=== PATIENT | male | born 1995 | race African-American/Black ===

== ENCOUNTER 2017-06-07 01:54 | Emergency (ER) | payer OTHER ==
[2017-06-07 03:08] LABS: BASO % 0.3 % (0.0-1.0); EOS # 0.1 10^3/uL (0.0-0.50); EOS % 0.8 % (0.0-3.0); HEMATOCRIT 40.3 % (42.0-52.0); HEMOGLOBIN 13.6 g/dl (14.0-18.0); IMMATURE GRANULOCYTE % 0.3 % (0-0); LYMPH # 1.9 10^3/uL (1.5-6.5); LYMPH % 21.8 % (24.0-44.0); MEAN CORPUSCULAR HEMOGLOBIN 29.6 pg (27.0-33.0); MEAN CORPUSCULAR HGB CONC 33.7 g/dl (32.0-36.5); MEAN CORPUSCULAR VOLUME 87.6 fl (80.0-96.0); NEUTROPHILS # 5.8 10^3/uL (1.8-7.7); NEUTROPHILS % 65.8 % (36.0-66.0); PLATELET COUNT, AUTOMATED 240 10^3/uL (150-450); RED CELL DISTRIBUTION WIDTH 11.3 % (11.5-14.5); WHITE BLOOD COUNT 8.8 10^3/uL (4.0-10.0)
[2017-06-07 03:20] LABS: ALBUMIN 4.4 GM/DL (3.2-5.2); ALBUMIN/GLOBULIN RATIO 1.47 (1.00-1.93); ALKALINE PHOSPHATASE 52 U/L (45-117); ALT/SGPT 45 U/L (12-78); ANION GAP 5 MEQ/L (8-16); AST/SGOT 49 U/L (7-37); BILIRUBIN,DIRECT 0.2 MG/DL (0.0-0.2); BILIRUBIN,TOTAL 0.5 MG/DL (0.2-1.0); BLOOD UREA NITROGEN 24 MG/DL (7-18); CALCIUM LEVEL 9.4 MG/DL (8.5-10.1); CARBON DIOXIDE LEVEL 29 MEQ/L (21-32); CHLORIDE LEVEL 106 MEQ/L (98-107); CREATININE FOR GFR 1.13 MG/DL (0.70-1.30); GLOMERULAR FILTRATION RATE > 60.0 (>60); GLUCOSE, FASTING 99 MG/DL (70-105); LIPASE 172 U/L (73-393); POTASSIUM SERUM 3.9 MEQ/L (3.5-5.1); SODIUM LEVEL 140 MEQ/L (136-145); TOTAL PROTEIN 7.4 GM/DL (6.4-8.2)
[2017-06-07] MEDS: GI COCKTAIL 50ML BTL(HYOSCYAMINE/MAALOX/LIDOCAINE VISCOUS)(1:3:1) PO (03:45)
[2017-06-07] MEDS ORDERED: ISOVUE-370 76% 100ML VIAL (Q9967) As Ordered (04:28)
[2017-06-07] MEDS: PANTOPRAZOLE 40MG INJ (PROTONIX) (C9113) IV (04:30)
[2017-06-07] MEDS: SUCRALFATE 1 GM TAB PO (04:30)
[2017-06-07] MEDS: FAMOTIDINE INJ 20MG/2ML VIAL (S0028) IVP (04:45)
== END 2017-06-07 06:33 | disposition home or self-care (01) ==
LOC: M ED 01:54
DX: R10.13 Epigastric pain (principal)
CPT/HCPCS: C9113

== ENCOUNTER 2017-07-05 14:26 | Emergency (ER) | payer OTHER ==
[2017-07-05] MEDS: IBUPROFEN 800 MG TAB PO (14:41)
== END 2017-07-05 16:04 | disposition home or self-care (01) ==
LOC: M ED 14:26
DX: S16.1XXA Strain of muscle, fascia and tendon at neck level, initial encounter (principal); S20.219A Contusion of unspecified front wall of thorax, initial encounter; V43.52XA Car driver injured in collision with other type car in traffic accident, initial encounter; Y92.9 Unspecified place or not applicable; Y93.9 Activity, unspecified
CPT/HCPCS: 71046

== ENCOUNTER 2017-07-29 23:00 | Emergency (ER) | payer OTHER ==
[2017-07-29] MEDS: ACETAMINOPHEN 325 MG TAB PO (23:45)
[2017-07-29] MEDS: CYCLOBENZAPRINE 10 MG TAB PO (23:45)
== END 2017-07-29 23:54 | disposition home or self-care (01) ==
LOC: M ED 23:00
DX: F07.81 Postconcussional syndrome (principal); K25.9 Gastric ulcer, unspecified as acute or chronic, without hemorrhage or perforation; Z79.899 Other long term (current) drug therapy
CPT/HCPCS: 99282

== ENCOUNTER 2018-12-20 20:09 | Inpatient (IN) | payer OTHER ==
[~2018-12-20] VITALS: Ht 182.9 cm; Wt 71.3 kg
[~2018-12-20 20:09] MED LIST: ACET1TAB55; CARA1TAB6; CARA1TAB6 PO; CYCL10TA; CYCL10TA PO; FAMO20TA PO; IBUP80TA PO; METH1TAB40; NAPR-885; PROT1TAB2; PROT1TAB2 PO; TYLE500T78 PO
[2018-12-20] MEDS ORDERED: MORPHINE 4 MG/ML 1ML VIAL/SYRINGE (J2270) As Ordered ONE (20:18)
[2018-12-20] MEDS ORDERED: MORPHINE 4 MG/ML 1ML VIAL/SYRINGE (J2270) IV ONE ×3 (20:30→21:15)
[2018-12-20 20:35] LABS: BASO % 0.2 % (0.0-1.0); EOS # 0.1 10^3/uL (0.0-0.50); HEMATOCRIT 41.6 % (42.0-52.0); HEMOGLOBIN 13.7 g/dl (13.5-17.5); LYMPH # 2.2 10^3/uL (1.5-6.5); LYMPH % 26.5 % (24.0-44.0); MEAN CORPUSCULAR HEMOGLOBIN 29.8 pg (27.0-33.0); MEAN CORPUSCULAR HGB CONC 32.9 g/dl (32.0-36.5); MEAN CORPUSCULAR VOLUME 90.6 fl (80.0-96.0); MONO # 0.7 10^3/uL (0.0-0.8); MONO % 8.3 % (0.0-5.0); NEUTROPHILS # 5.3 10^3/uL (1.8-7.7); NEUTROPHILS % 63.6 % (36.0-66.0); PLATELET COUNT, AUTOMATED 243 10^3/uL (150-450); RED BLOOD COUNT 4.59 10^6/uL (4.30-6.10); WHITE BLOOD COUNT 8.2 10^3/uL (4.0-10.0)
[2018-12-20] MEDS ORDERED: AMPICILLIN SOD/SULBACTAM SOD 1.5 GM in D5W MINI-BAG PLUS 50 ML IV ONE (20:45)
[2018-12-20 20:49] LABS: BLOOD UREA NITROGEN 14 MG/DL (7-18); CARBON DIOXIDE LEVEL 27 MEQ/L (21-32); CHLORIDE LEVEL 108 MEQ/L (98-107); CREATININE FOR GFR 1.31 MG/DL (0.70-1.30); GLOMERULAR FILTRATION RATE > 60.0 (>60); GLUCOSE, FASTING 89 MG/DL (70-100); SODIUM LEVEL 143 MEQ/L (136-145)
[2018-12-20] MEDS ORDERED: HYDROMORPHONE HCL 0.5 MG/ 0.5 ML SYRINGE (J1170 PER 1) IV PRN (22:15)
[2018-12-21 01:10] VITALS: BP 143/85
[2018-12-21] MEDS ORDERED: oxyCODONE 5MG TAB PO PRN (01:30)
[2018-12-21] MEDS: MORPHINE 4 MG/ML 1ML VIAL/SYRINGE (J2270) IV PRN ×2 (01:40→19:14)
[2018-12-21] MEDS: NS 1,000 ML IV SCH ×2 (01:45→12:16)
[2018-12-21] MEDS: ceFAZolin SOD 1 GM in D5W MINI-BAG PLUS 50 ML IV SCH ×2 (02:13→09:31)
[2018-12-21] MEDS: oxyCODONE 5MG TAB PO PRN ×3 (03:56→14:32)
[2018-12-21 06:00] VITALS: BP 124/76
--- NOTE | 2018-12-21 07:19 | HPE ---
DATE OF ADMISSION: 12/20/2018 CHIEF COMPLAINT: Right leg pain. HISTORY OF PRESENT ILLNESS: This is a pleasant young man who presents to the emergency room for right leg pain. The patient was playing soccer last evening at 8:00 p.m. when he was tackled during a soccer game and appreciated immediate pain and deformity to his right leg. The patient also notes a small laceration and bleeding over his right leg. He also had inability to ambulate. The pain was sharp and severe 10/10. It was located on the anteromedial right leg. He denies any pain elsewhere. He states the pain was made worse with movement and improved with immobilization and pain medications. He was taken to [facility] emergency room where he was evaluated and found a midshaft tibia/fibular fracture and the tibia fracture was open. He denies any recent fever, chills, nausea or vomiting. Denies any numbness or tingling. REVIEW OF SYSTEMS: 10-system review of systems was conducted with pertinent positives and negatives in the history of present illness (HPI). All other systems negative. PAST MEDICAL HISTORY: None. MEDICATIONS: He does not take any medications. ALLERGIES: No known drug allergies. PAST SURGICAL HISTORY: None. SOCIAL HISTORY: He is with a small child and works at [employer] for the last two years. He is a smoker. PHYSICAL EXAMINATION: Vital signs are stable. The patient is awake, alert and oriented. Patient's breathing is unlabored on room air. Well dressed with appropriate affect. Bilateral upper extremities: No test, but the patient has full active range of motion of the shoulders, elbows and hands with no pain. Radial pulses are 2+ and regular rate. Sensory: The patient is intact to light touch to superficial, sensory nerve, medial nerve and ulnar nerve. Positive anterior interosseous nerve (AIN) and posterior interosseous nerve (PIN) and ulnar motor nerve function. Normal cascade with composite test. Left lower extremity: No tenderness to palpation. Full active range of motion of the hip, knee, and ankle without any pain. Positive extensor hallucis longus (EHL) and flexor hallucis longus (FHL), tibia and gastroc motor function. Sensation to light touch superficial peroneal, deep peroneal, sural and saphenous and tibial distributions. Posterior tibial is 2+ with regular rate. Right lower extremity: Splint is intact. Tender to palpation over the midshaft tibia. 1.5 cm laceration that is clean on the anteromedial aspect of the tibia. Intact toe FHL and EHL. No pain with passive stretching. Compartments are soft but tender, soft and compressible though. No tenderness to palpation of about the knee. No tenderness to palpation about the hip. Patient is intact in sural and saphenous, tibial and superficial deep peroneal nerves. Dorsalis pedis pulses are 2+ with a regular rate. IMAGING: X-rays of the tibia were reviewed demonstrating a midshaft tibial fracture and mid shaft fibular fracture. ASSESSMENT/PLAN: 1. Open midshaft tibia fracture. 2. Closed midshaft fibula fracture. The patient will be admitted to the orthopaedic service. He will nothing by mouth after midnight. He is receiving IV antibiotics per open fracture protocol. His tetanus is up-to-date with [facility]. He will be monitored overnight for compartment checks. He will be given pain medication for pain control. He will immobilized in a splint. He is bedrest with plan for operative intervention tomorrow, which was discussed with the patient and his family, which involves irrigation and debridement of the open fracture of the tibia along with intramedullary nailing of the tibia and closed management of the fibula. All risks and benefits were discussed with the patient including but not limited to malunion, nonunion and infection, damage to surrounding structures. We did discuss how he is at a little bit higher risk of infection due to his open fracture along with the fact that he smokes and that smoking also increases his risk of nonunion.
--- NOTE | 2018-12-21 07:49 | REP ---
Clinical: Trauma. Technique: AP and lateral views of the right tibia / fibula. Findings: Transverse moderately displaced fractures of the distal tibial and ulnar diaphyses noted. Impression: Transverse fractures of the distal tibial and ulnar diaphyses. Electronically Signed by Asa Lincoln MD 12/21/2018 07:41 A
--- NOTE | 2018-12-21 07:50 | REP ---
Clinical: Preoperative assessment . Comparison: 07/05/2017 . Findings: The mediastinum and cardiac silhouette are stable and within normal limits for portable technique. The lung mandel are clear without acute consolidation, effusion, or pneumothorax. Skeletal structures are intact. Impression: No acute cardiopulmonary process appreciated. Electronically Signed by Asa Lincoln MD 12/21/2018 07:42 A
[2018-12-21 14:00] VITALS: BP 136/76
[2018-12-21] MEDS ORDERED: ACETAMINOPHEN TAB 650MG DOSE (2X325MG) PO PRN (16:00)
[2018-12-21] MEDS ORDERED: MORPHINE 4 MG/ML 1ML VIAL/SYRINGE (J2270) As Ordered ONE (19:09)
[2018-12-21] MEDS ORDERED: fentaNYL 100 MCG/2 ML INJECTION (J3010) As Ordered ONE (19:29)
[2018-12-21] MEDS ORDERED: PROPOFOL 500 MG/50 ML VIAL As Ordered ONE (19:29)
[2018-12-21] MEDS ORDERED: ONDANSETRON 4MG/2ML VIAL (J2405) As Ordered ONE (19:30)
[2018-12-21] MEDS ORDERED: LIDOCAINE 2% INJ 100 MG/5 ML SDV (FOR ANES.) As Ordered ONE ×2 (19:30→22:09)
[2018-12-21] MEDS ORDERED: dexameTHASONE 4 MG/ML 1ML VIAL (J1100) As Ordered ONE (19:30)
[2018-12-21] MEDS ORDERED: MIDAZOLAM INJ 2 MG/2 ML VIAL (J2250) As Ordered ONE (19:30)
[2018-12-21] MEDS ORDERED: ceFAZolin 2 GM/D5W 50 ML IV BAG (J0690 PER 500MG) As Ordered ONE (20:08)
[2018-12-21] MEDS ORDERED: KETAMINE HCL 200 MG/20 ML VIAL As Ordered ONE (20:29)
[2018-12-21] MEDS ORDERED: PHENYLephrine HCL 500 MCG/5 ML (100MCG/ML) SYRINGE (J2370) As Ordered ONE ×2 (21:15→22:16)
[2018-12-21] MEDS ORDERED: PROPOFOL 200 MG/20 ML VIAL As Ordered ONE ×2 (21:56→22:40)
--- NOTE | 2018-12-21 22:12 | ECGEPIP ---
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
[2018-12-21] MEDS ORDERED: NS 1,000 ML IV SCH (23:15)
[2018-12-21] MEDS ORDERED: ONDANSETRON 4MG/2ML VIAL (J2405) IV PRN (23:30)
[2018-12-21] MEDS ORDERED: fentaNYL 100 MCG/2 ML INJECTION (J3010) IV PRN (23:30)
[2018-12-21] MEDS ORDERED: LR 1,000 ML IV SCH (23:30)
[2018-12-21] MEDS ORDERED: FLEET ENEMA PR PRN (23:30)
[2018-12-21] MEDS ORDERED: MORPHINE 4 MG/ML 1ML VIAL/SYRINGE (J2270) IM PRN (23:30)
[2018-12-21 23:58] VITALS: BP 124/74
[2018-12-22 00:17] VITALS: BP 122/74
[2018-12-22 00:59] VITALS: BP 119/77
[2018-12-22] MEDS: oxyCODONE 5MG TAB PO PRN ×6 (01:06→23:09)
[2018-12-22 02:14] VITALS: BP 122/79
[2018-12-22] MEDS: ceFAZolin SOD 1 GM in D5W MINI-BAG PLUS 50 ML IV SCH ×3 (04:34→20:27)
[2018-12-22 06:29] LABS: HEMATOCRIT 40.3 % (42.0-52.0); HEMOGLOBIN 13.6 g/dl (13.5-17.5); MEAN CORPUSCULAR HEMOGLOBIN 29.2 pg (27.0-33.0); MEAN CORPUSCULAR HGB CONC 33.7 g/dl (32.0-36.5); MEAN CORPUSCULAR VOLUME 86.5 fl (80.0-96.0); PLATELET COUNT, AUTOMATED 207 10^3/uL (150-450); RED BLOOD COUNT 4.66 10^6/uL (4.30-6.10); WHITE BLOOD COUNT 10.3 10^3/uL (4.0-10.0)
[2018-12-22 06:40] VITALS: BP 120/83
--- NOTE | 2018-12-22 07:52 | REP ---
Clinical: Open reduction and fixation. Technique: Intraoperative fluoroscopic imaging using portable C-arm technique. Findings: The patient is status post tibial intramedullary joelle placement for transverse tibial shaft fracture. Satisfactory alignment and orthopedic hardware placement noted. A nondisplaced transverse fracture through the distal fibular shaft identified. Total fluoroscopic time 2 minutes 33 seconds. Impression: Status post satisfactory open reduction and fixation. Electronically Signed by Asa Lincoln MD 12/22/2018 07:43 A
[2018-12-22] MEDS: ENOXAPARIN 30 MG/0.3 ML SYR (J1650) SC SCH ×2 (08:33→20:28)
[2018-12-22] MEDS: MORPHINE 15 MG SA TAB PO SCH ×2 (08:33→20:28)
--- NOTE | 2018-12-22 08:54 | IPN ---
DATE OF SERVICE: 12/22/2018 CHIEF COMPLAINT: Postop day #1 right tibia fracture IM nailing. HISTORY OF PRESENT ILLNESS: This 23-year-old man underwent IM nailing of what appears to have been an open tibia fracture last evening. He is doing well. He is sleeping comfortably. No concerns from him or the nurses overnight. PHYSICAL EXAM: He is a well-appearing 23-year-old man who appears to be sleeping comfortably. Arouses easily. He is able to follow direction. The lower extremity is overwrapped in Bunny bandage. Compartments feel soft. No pain on passive stretch. He is able to wiggle his toes and somewhat dorsiflex and plantarflex the foot. He feels like there is a little bit of decreased sensation of the dorsum of his foot but normal on the plantar aspect. Foot is warm and well perfused. Good dorsalis pedis pulse. Laboratory examination this morning revealed hemoglobin 13.6 stable from 13.7 prior to surgery. ASSESSMENT/PLAN: This 23-year-old man hopefully can be discharged home today. He will be made non-weightbearing on crutches. He is quite surprised to hear this. He will followup with Dr. Ramirez in the office.
--- NOTE | 2018-12-22 09:21 | REP ---
Clinical: Status post open reduction and fixation. Technique: AP and lateral views of the right tibia / fibula. Findings: The patient is status post satisfactory open reduction and fixation with intramedullary joelle through the tibial shaft. Transverse fracture through the distal tibial diaphysis demonstrates normal alignment. Nondisplaced fracture of the distal fibular shaft noted. Impression: Status post satisfactory open reduction and fixation. Electronically Signed by Asa Lincoln MD 12/22/2018 09:13 A
[2018-12-22] MEDS ORDERED: CYCLOBENZAPRINE 5MG TABLET PO ONE (12:00)
--- NOTE | 2018-12-22 12:00 | RO ---
DATE OF PROCEDURE: 12/21/2018 PREOPERATIVE DIAGNOSIS: Right open mid shaft tibia fracture, closed fibula shaft fracture displaced. POSTOPERATIVE DIAGNOSIS: Right open mid shaft tibia fracture, closed fibula shaft fracture displaced. PROCEDURE: Irrigation and debridement open tibia shaft fracture, intramedullary joelle nailing of tibia shaft and closed management of fibula shaft fracture. SURGEON: Dr. Hugo Ramirez ACTIVITIES DIRECTOR SCOUTING: Mary Smalls PA-C ANESTHESIA: Spinal. ESTIMATED BLOOD LOSS: 20 mL. COMPLICATIONS: None. INDICATIONS: This is a pleasant 23-year-old male who was playing soccer and suffered an open mid shaft tibia fracture and a closed fibula shaft fracture. This was unstable and the quickest means to get him up and ambulatory is through intramedullary nailing. The patient expressed understanding of this and wanted to proceed. He understood the risks included but not limited to malunion, nonunion, infection, damage to surrounding structures and . DESCRIPTION OF PROCEDURE: Patient was taken to the operating room and laid supine down on the table, underwent a spinal. Once this was accomplished, his leg was shaved, scrubbed down with chlorhexidine and alcohol. A tourniquet was placed on his right thigh and set to 250 mm of mercury. Then the patient was prepped and draped at which point a time out was taken. Initially, our attention turned to the open wound on the medial aspect of the distal tibia overlying the fracture. It was 1.5 cm in length. This wound was sharply debrided in both skin, subcutaneous tissue, fascia and bone and thoroughly irrigated with a liter of saline. Once we felt it was adequately debrided, we made a direct anterior incision overlying the fracture and used sharp point to point clamps to reduce the fracture. Once this was adequately reduced, we turned our attention to his knee. We made an incisional longitudinal just proximal to his kneecap that went through skin, subcutaneous tissue through the quad tendon. We then inserted the suprapatellar guide and obtained our start point with a K-wire. Once satisfied we used the entry reamer into the tibial canal. Once that was done we entered the Guidewire. Once the Guidewire was satisfactorily placed past the fracture down to the tibia plafond we sequentially reamed up to 11.[address] a size 10 nail. We felt this attained excellent isthmic fit, then we put on the proximal jig and inserted three proximal interlocking screws, but we were unhappy with one of the placements of one of the proximal screws and it ended up being removed towards the end of the procedure. Once we were done there, we turned our attention distally to the distal interlocking screws and placed two screws medial to lateral under perfect grindstone technique. Stab incisions were made and spread down to bone with tonsil to avoid the saphenous vein. Once we were happy with the screw placement, we removed the jig, took final films because we were quite happy with the tibia reduction and satisfied with the fibula closed reduction. Then the wounds were thoroughly irrigated. The traumatic wound was closed with #3-0 nylon. The anterior wounds to reduce the fracture was closed with #3-0 Vicryl and #3-0 nylon. The rest of the incisions made for nail insertion and screw insertions were closed with #3-0 Vicryl and lila. The wound were then dressed with Adaptic gauze, ABD, Webril and Kerlix and an NOLAN. The tourniquet was let down. The total tourniquet time was 1 hours and 40 minutes. The patient was taken to the postanesthesia care unit (PACU) in stable condition. PA assistance was necessary for this procedure and no other qualified help was available POSTOPERATIVE PLAN: The patient will be weightbearing as tolerated. Skip antibiotics for 16 hours, then 1 gram Ancef every 8 hours for three doses. He will receive Lovenox while in-house and discharged on 325 aspirin twice a day. HENNA
[2018-12-22 14:00] VITALS: BP 129/76
[2018-12-22] MEDS: ACETAMINOPHEN TAB 650MG DOSE (2X325MG) PO PRN (15:13)
[2018-12-22] MEDS: CYCLOBENZAPRINE 5MG TABLET PO SCH (21:24)
[2018-12-22 22:40] VITALS: BP 138/76
[2018-12-23] MEDS: CYCLOBENZAPRINE 5MG TABLET PO SCH ×3 (05:11→21:02)
[2018-12-23] MEDS: oxyCODONE 5MG TAB PO PRN ×4 (05:11→19:41)
[2018-12-23 06:19] VITALS: BP 138/81
[2018-12-23] MEDS: ACETAMINOPHEN TAB 650MG DOSE (2X325MG) PO PRN ×3 (06:25→19:40)
[2018-12-23] MEDS ORDERED: diphenhydrAMINE 25 MG CAP PO PRN (06:30)
[2018-12-23 07:16] LABS: HEMATOCRIT 36.3 % (42.0-52.0); HEMOGLOBIN 12.4 g/dl (13.5-17.5); MEAN CORPUSCULAR HEMOGLOBIN 29.5 pg (27.0-33.0); MEAN CORPUSCULAR HGB CONC 34.2 g/dl (32.0-36.5); MEAN CORPUSCULAR VOLUME 86.4 fl (80.0-96.0); PLATELET COUNT, AUTOMATED 176 10^3/uL (150-450); WHITE BLOOD COUNT 8.4 10^3/uL (4.0-10.0)
[2018-12-23] MEDS: ENOXAPARIN 30 MG/0.3 ML SYR (J1650) SC SCH ×2 (10:00→21:02)
--- NOTE | 2018-12-23 11:45 | IPN ---
DATE: 12/23/2018 CHIEF COMPLAINT: Postoperative day #2 right open tibia-fibula shaft fracture with intramedullary (IM) nailing. HISTORY OF PRESENT ILLNESS: This 23-year-old man is seen today in the [facility] postop day #2. He had IM nail performed by Dr. Ramirez He is doing well. He has seen physical therapist. He is a little bit slow to mobilize given his relatively young age. Otherwise, pain is well-controlled. PHYSICAL EXAMINATION: Well-appearing 23-year-old old man. He is somnolent. He is easily arousable, however. He is alert and times three. His mood and affect much more pleasant, more interactive today. Appears much more comfortable. He is able to wiggle his toes. No pain to passive stretch. He has normal sensation throughout the foot. Foot is warm and well perfused. Good cap refill. Laboratory examination revealed stable hemoglobin 12.4. ASSESSMENT/PLAN: This 23-year-old man will be discharged home as soon as he is cleared by physical therapy to ambulate nonweightbearing on the site of the fracture. He is on Lovenox for venous thromboembolism (VTE) prophylaxis. He is on 30 mg twice a day. We will likely decrease this to 40 mg. Followup in the office with Dr. Ramirez. We will double check with him that he is okay with slightly decreasing the dose of the Lovenox.
[2018-12-23 14:00] VITALS: BP 136/81
[2018-12-23] MEDS ORDERED: ISOVUE-370 76% 100ML VIAL (Q9967) As Ordered ONE (16:35)
[2018-12-23 16:53] LABS: APPEARANCE, URINE CLEAR (CLEAR); BACTERIA, URINE AUTO NEGATIVE (NEGATIVE); BILIRUBIN, URINE AUTO NEGATIVE (NEGATIVE); BLOOD, URINE BLOOD NEGATIVE (NEGATIVE); COLOR, URINE YELLOW (YELLOW); GLUCOSE, URINE (UA) AUTO 1+ mg/dL (NEGATIVE); KETONE, URINE AUTO NEGATIVE (NEGATIVE); LEUKOCYTE ESTERASE, URINE AUTO NEGATIVE (NEGATIVE); MUCUS, URINE SMALL (NEGATIVE); NITRITE, URINE AUTO NEGATIVE (NEGATIVE); PROTEIN, URINE AUTO NEGATIVE (NEGATIVE); RBC, URINE AUTO 1 /HPF (0-3); SPECIFIC GRAVITY URINE AUTO 1.012 (1.002-1.035); SQUAMOUS EPITHELIAL CELL UR AU 0 /HPF (0-6); UROBILINOGEN, URINE AUTO 0.2 mg/dL (0.0-2.0); WBC, URINE AUTO 1 /HPF (0-3)
--- NOTE | 2018-12-23 17:33 | REPVR ---
EXAM: CT Angiography Chest With Contrast EXAM DATE/TIME: 12/23/2018 5:00 PM CLINICAL HISTORY: 23 years old, male; Pain; Other: Fever, post op; Additional info: Post op patient with fever, R/O pe TECHNIQUE: Imaging protocol: Axial computed tomographic angiography images of the chest with intravenous contrast using CT angiography protocol. Coronal and sagittal reformatted images were created and reviewed. 3D rendering: MIP reconstructed images were created and reviewed. Radiation optimization: All CT scans at this facility use at least one of these dose optimization techniques: automated exposure control; mA and/or kV adjustment per patient size (includes targeted exams where dose is matched to clinical indication); or iterative reconstruction. Contrast material: ISOVUE 370;Contrast volume: 100 ml;Contrast route: IV; COMPARISON: CR Chest, 1 view 12/20/2018 10:56 PM FINDINGS: Pulmonary arteries: There is contrast opacification of thoracic aorta and extreme limitation for assessment of pulmonary embolus by significantly delayed film contrast timing abnormalities. Aorta: Unremarkable. No aortic aneurysm. No aortic dissection. Lungs: Groundglass opacities in the lower lobes of lungs. Pleural space: No pleural effusion. Heart: Unremarkable. No cardiomegaly. No pericardial effusion. Mediastinum: Partial air distention of the upper to mid esophagus. Lymph nodes: Unremarkable. No enlarged lymph nodes. Bones/joints: Unremarkable. No acute fracture. Soft tissues: Unremarkable. IMPRESSION: 1. Significant delay from contrast timing abnormality does not allow detailed assessment for the presence of pulmonary embolus and would require repeat examination at a dedicated CTA protocol. 2. Groundglass opacity of the lower lungs which could reflect infectious or inflammatory changes. Electronically signed by: Carole Cheema On 12/23/2018 17:33:21 PM
[2018-12-23 20:31] VITALS: BP 135/80
[2018-12-24] MEDS: oxyCODONE 5MG TAB PO PRN ×5 (01:12→20:08)
[2018-12-24] MEDS: CYCLOBENZAPRINE 5MG TABLET PO SCH ×3 (05:12→23:19)
[2018-12-24] MEDS ORDERED: MAGNESIUM CITRATE 300 ML BTL PO ONE (05:45)
[2018-12-24 05:50] LABS: HEMATOCRIT 38.4 % (42.0-52.0); HEMOGLOBIN 12.9 g/dl (13.5-17.5); MEAN CORPUSCULAR HEMOGLOBIN 29.4 pg (27.0-33.0); MEAN CORPUSCULAR HGB CONC 33.6 g/dl (32.0-36.5); MEAN CORPUSCULAR VOLUME 87.5 fl (80.0-96.0); PLATELET COUNT, AUTOMATED 214 10^3/uL (150-450); RED BLOOD COUNT 4.39 10^6/uL (4.30-6.10); WHITE BLOOD COUNT 7.7 10^3/uL (4.0-10.0)
[2018-12-24 06:47] VITALS: BP 134/81
[2018-12-24] MEDS: ENOXAPARIN 30 MG/0.3 ML SYR (J1650) SC SCH (09:44)
[2018-12-24] MEDS: MIRALAX *UNIT DOSE* 17GM PACKET PO SCH (09:44)
[2018-12-24] MEDS: MOM 30ML SUSPENSION UDC PO SCH (09:44)
[2018-12-24 14:10] LABS: ALT/SGPT 44 U/L (12-78); BLOOD UREA NITROGEN 6 MG/DL (7-18); CALCIUM LEVEL 9.6 MG/DL (8.5-10.1); CARBON DIOXIDE LEVEL 35 MEQ/L (21-32); CHLORIDE LEVEL 99 MEQ/L (98-107); CREATININE FOR GFR 1.07 MG/DL (0.70-1.30); GLOMERULAR FILTRATION RATE > 60.0 (>60); GLUCOSE, FASTING 102 MG/DL (70-100); SODIUM LEVEL 138 MEQ/L (136-145)
[2018-12-24 14:11] LABS: ALBUMIN 3.4 GM/DL (3.2-5.2); BILIRUBIN,TOTAL 0.7 MG/DL (0.2-1.0); TOTAL PROTEIN 7.4 GM/DL (6.4-8.2)
[2018-12-24] MEDS ORDERED: ISOVUE-370 76% 100ML VIAL (Q9967) As Ordered ONE (17:22)
--- NOTE | 2018-12-24 17:53 | REPVR ---
EXAM: CT Angiography Chest With Contrast EXAM DATE/TIME: 12/24/2018 5:24 PM CLINICAL HISTORY: 23 years old, male; Chest pain; Additional info: Incomplete scan 12/23/18 TECHNIQUE: Imaging protocol: Axial computed tomographic angiography images of the chest with intravenous contrast using CT angiography protocol. Coronal and sagittal reformatted images were created and reviewed. 3D rendering: MIP reconstructed images were created and reviewed. Radiation optimization: All CT scans at this facility use at least one of these dose optimization techniques: automated exposure control; mA and/or kV adjustment per patient size (includes targeted exams where dose is matched to clinical indication); or iterative reconstruction. Contrast material: ISOVUE 370;Contrast volume: 75 ml;Contrast route: IV; COMPARISON: CT ANGIO CHEST 12/23/2018 4:58 PM FINDINGS: Pulmonary arteries: Small partially occlusive filling defect in 2 upper lobe segmental pulmonary arteries on the right. Remaining pulmonary arteries unremarkable. Aorta: Unremarkable. No aortic aneurysm. No aortic dissection. Lungs: Bibasilar atelectasis. Lungs otherwise clear. Pleural space: Unremarkable. No pneumothorax. No pleural effusion. Heart: Unremarkable. No cardiomegaly. No pericardial effusion. Lymph nodes: Unremarkable. No enlarged lymph nodes. Bones/joints: Unremarkable. No acute fracture. Soft tissues: Unremarkable. IMPRESSION: 1. Small partially occlusive filling defect in 2 upper lobe segmental pulmonary arteries on the right. 2. No aneurysm or dissection. A critical call has been made to speak with the ordering physician/practitioner. This report will be amended once consultation has occurred. Electronically signed by: Low Carballo On 12/24/2018 17:53:00 PM
[2018-12-24] MEDS ORDERED: NS 1,000 ML IV ONE (18:00)
[2018-12-24] MEDS: APIXABAN 5 MG TAB (ELIQUIS) PO SCH (18:42)
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
[2018-12-24] MEDS ORDERED: ELIQ5TAB PO (18:52)
[2018-12-24 19:00] VITALS: BP 131/88
--- NOTE | 2018-12-24 21:09 | ECGEPIP ---
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
[2018-12-24 23:59] VITALS: BP 129/86
[2018-12-25] MEDS: oxyCODONE 5MG TAB PO PRN ×5 (02:00→23:00)
[2018-12-25 04:00] VITALS: BP 118/75
[2018-12-25 05:21] LABS: HEMOGLOBIN 11.6 g/dl (13.5-17.5); MEAN CORPUSCULAR HEMOGLOBIN 28.9 pg (27.0-33.0); MEAN CORPUSCULAR HGB CONC 33.1 g/dl (32.0-36.5); MEAN CORPUSCULAR VOLUME 87.1 fl (80.0-96.0); PLATELET COUNT, AUTOMATED 227 10^3/uL (150-450); RED BLOOD COUNT 4.02 10^6/uL (4.30-6.10); WHITE BLOOD COUNT 5.5 10^3/uL (4.0-10.0)
[2018-12-25] MEDS: CYCLOBENZAPRINE 5MG TABLET PO SCH ×3 (05:50→21:30)
[2018-12-25 05:52] LABS: BLOOD UREA NITROGEN 7 MG/DL (7-18); CALCIUM LEVEL 9.3 MG/DL (8.5-10.1); CARBON DIOXIDE LEVEL 32 MEQ/L (21-32); CHLORIDE LEVEL 100 MEQ/L (98-107); CREATININE FOR GFR 0.94 MG/DL (0.70-1.30); GLOMERULAR FILTRATION RATE > 60.0 (>60); GLUCOSE, FASTING 112 MG/DL (70-100); POTASSIUM SERUM 4.1 MEQ/L (3.5-5.1); SODIUM LEVEL 136 MEQ/L (136-145); TROPONIN I < 0.02 NG/ML (< 0.10)
[2018-12-25] MEDS ORDERED: SLF 3 ML SYR IV PRN (06:00)
[2018-12-25] MEDS: SLF 3 ML SYR IV SCH ×3 (06:30→21:31)
[2018-12-25 08:00] VITALS: BP 106/60
[2018-12-25] MEDS: APIXABAN 5 MG TAB (ELIQUIS) PO SCH ×2 (08:17→21:30)
[2018-12-25] MEDS: MIRALAX *UNIT DOSE* 17GM PACKET PO SCH (08:18)
[2018-12-25] MEDS: MOM 30ML SUSPENSION UDC PO SCH (09:00)
--- NOTE | 2018-12-25 11:11 | IPNPDOC ---
Subjective Date Seen The patient was seen on 12/25/18. Subjective Chief Complaint/HPI Patient seen and examined at the bedside. No acute overnight events noted. Objective Physical Examination General Exam: Positive: Alert, Cooperative, No Acute Distress ENT Exam: Positive: Atraumatic, Mucous membr. moist/pink Neck Exam: Negative: JVD Chest Exam: Positive: Clear to auscultation, Normal air movement Heart Exam: Positive: Rate Normal, Normal S1, Normal S2 Abdomen Exam: Positive: Soft; Negative: Tenderness Extremity Exam: Positive: Other (Right LE wrapped in surgical dressing. Extremity neurovascularly intact distally.) Psych Exam: Positive: Oriented x 3 Assessment /Plan Plan/VTE VTE Prophylaxis Ordered?: Yes Plan Right tib/fib fracture -POD 3 intermedullary joelle nailing - management per ortho Small pulmonary embolism despite SC lovenox for DVT prophylaxis. On Eliquis for AC Hemodynamically stable 2D ECHO pending Cont to monitor DVT Prophylaxis On Eliquis Dispo--pending functional optimization with PT. [facility] V[facility] Signs/I&O Vital Signs Date Time Temp Pulse Resp B/P (MAP) Pulse Ox O2 Delivery O2 Flow Rate FiO2 12/25/18 08:00 97.3 101 18 106/60 (75) 97 12/21/18 00:20 Room Air I&O- Last 24 Hours up to 6 AM 12/25/18 06:00 Intake Total 1670 ml Output Total 1550 ml Balance 120 ml Laboratory Data 24H LABS Laboratory Tests 2 12/24/18 18:27: Troponin I < 0.02 12/25/18 04:50: Troponin I < 0.02, Nucleated Red Blood Cells % (auto) 0.0, Anion Gap 4L, Glome rular Filtration Rate > 60.0, Blood Urea Nitrogen 7, Creatinine 0.94, Sodium Level 136, Potassium Level 4.1, Chloride Level 100, Carbon Dioxide Level 32, Calcium Level 9.3 CBC/BMP Laboratory Tests 12/25/18 04:50 Red Blood Count 4.02 L, Mean Corpuscular Volume 87.1, Mean Corpuscular Hemoglobin 28.9, Mean Corpuscular Hemoglobin Concent 33.1, Red Cell Distribution Width 11.6, Calcium Level 9.3 Microbiology Microbiology 12/23/18 Blood Culture - Preliminary, Resulted No growth after 24 hours . All specim... 12/23/18 Blood Culture - Preliminary, Resulted No growth after 24 hours . All specim... KASHIF STONER MD Dec 25, 2018 11:11
[2018-12-25 12:00] VITALS: BP 131/81
[2018-12-25 16:00] VITALS: BP 139/80
[2018-12-25 20:00] VITALS: BP 140/80
[2018-12-25] MEDS: NYSTATIN 500,000 U/5 ML SUSP UDC SS SCH (21:30)
[2018-12-25 23:59] VITALS: BP 138/85
[2018-12-26] MEDS: oxyCODONE 5MG TAB PO PRN ×3 (03:01→13:58)
[2018-12-26 04:00] VITALS: BP 135/82
[2018-12-26] MEDS: SLF 3 ML SYR IV SCH ×2 (06:00→13:58)
[2018-12-26] MEDS: CYCLOBENZAPRINE 5MG TABLET PO SCH ×2 (06:35→13:56)
--- NOTE | 2018-12-26 06:41 | ECHO ---
DATE OF PROCEDURE: 12/25/2018 DATE OF : 1995 AGE: 23 REFERRING PHYSICIAN: Dr. Hugo Ramirez PATIENT LOCATION: Room 3216 REASON FOR ECHOCARDIOGRAM: Pulmonary embolism. 2-D MEASUREMENTS: IVS: 1.1 cm LV: 4.0 cm LVPW: 1.0 cm LA: 3.2 cm Aorta: 2.8 cm IVC: 1.1 cm DOPPLER MEASUREMENTS: Peak velocity across the aortic valve: 1.2 m/s Peak velocity across the LVOT: 1.0 m/s Mitral E: 0.8 Mitral A: 0.5 Ratio: 1.5 2-D COMMENTS: 1. Normal left ventricular size, wall thickness, and normal global left ventricular systolic function. The estimated ventricular systolic ejection fraction is 60-65%. 2. Normal left atrium. Normal right atrium and right ventricle. 3. The atrial septum appeared to be normal without evidence of defect or shunt. 4. Normal aortic root. 5. No pericardial effusion seen. 6. Normal aortic valve. Minimally calcified mitral annulus with normal anterior mitral valve leaflet motion. Normal tricuspid valve and pulmonic valve. The proximal pulmonary artery branches also appeared to be normal. 7. The inferior vena cava was normal in size, central venous pressure might be normal. DOPPLER: Only trace mitral regurgitation detected. Assessment of the left ventricular diastolic function was normal. IMPRESSION: 1. Normal global left ventricular systolic and diastolic function. 2. Trace mitral regurgitation. 3. No cardiac manifestation of pulmonary embolism in this transthoracic echocardiogram.
[2018-12-26 08:00] VITALS: BP 126/80
[2018-12-26] MEDS: APIXABAN 5 MG TAB (ELIQUIS) PO SCH (09:32)
[2018-12-26] MEDS: NYSTATIN 500,000 U/5 ML SUSP UDC SS SCH ×2 (09:34→13:56)
[2018-12-26] MEDS: MIRALAX *UNIT DOSE* 17GM PACKET PO SCH (09:34)
[2018-12-26] MEDS: MOM 30ML SUSPENSION UDC PO SCH (09:34)
[2018-12-26 12:00] VITALS: BP 145/81
[2018-12-26] MEDS ORDERED: CYCL5TAB PO (12:03)
[2018-12-26] MEDS ORDERED: OXYCO5TA PO (12:03)
[2018-12-26] MEDS ORDERED: NYST50SS PO (16:13)
--- NOTE | 2018-12-26 17:04 | DS.PDOC ---
Discharge Summary General Date of Admission Dec 20, 2018 at 22:40 Date of Discharge 12/26/18 Discharge Summary PROCEDURES PERFORMED DURING STAY: Right Tib/Fib fracture s/p intermedullary joelle nailing on 8 ADMITTING/DISCHARGE DIAGNOSES: Right Tib/Fib fracture s/p intermedullary joelle nailing on 12/21 Pulmonary Embolism COMPLICATIONS/CHIEF COMPLAINT: R Open Tib/Fib Shaft Fx. HISTORY OF PRESENT ILLNESS: . 23 yo male admitted with right tib/fib fracture after playing soccer and kicked by another player. He underwent irrigation and debridement open tibia shaft fracture, intramedullary joelle nailing of tibia shaft and closed management of fibula shaft fracture on 12/21/18. On 12/23/18 he developed fever and tachycardia. His symptoms persisted. He had no hypoxia. He was sent for CTA chest and this revealed 2 small upper lobe PE in the periphery. He denied any SOB, CP, N/V. Right tib/fib fracture s/p intermedullary joelle nailing Follow up with Ortho as outpatient Small pulmonary embolism despite SC lovenox for DVT prophylaxis. On Eliquis for AC---patient counseled on the need to continue with 10mg BID for the next 5 days, then 5mg BID thereafter Risks, benefits, alternative options regarding anticoagulation therapy discussed at length with the patient. The patient verbalizes understanding of the same, and all questions were answered to his satisfaction. Hemodynamically stable 2D ECHO with no acute findings Patient counseled to follow up with his PCP regarding further management of AC DISCHARGE MEDICATIONS: Please see below. ALLERGIES: Please see below. PHYSICAL EXAMINATION ON DISCHARGE: VITAL SIGNS: Please see below. General Exam: Positive: Alert, Cooperative, No Acute Distress ENT Exam: Positive: Atraumatic, Mucous membr. moist/pink Neck Exam: Negative: JVD Chest Exam: Positive: Clear to auscultation, Normal air movement Heart Exam: Positive: Rate Normal, Normal S1, Normal S2 Abdomen Exam: Positive: Soft; Negative: Tenderness Extremity Exam: Positive: Other (Right LE wrapped in surgical dressing. Extremity neurovascularly intact distally.) Psych Exam: Positive: Oriented x 3 LABORATORY DATA: Please see below. IMAGING: Clinical: Trauma. Technique: AP and lateral views of the right tibia / fibula. Findings: Transverse moderately displaced fractures of the distal tibial and ulnar diaphyses noted. Impression: Transverse fractures of the distal tibial and ulnar diaphyses. Clinical: Preoperative assessment . Comparison: 07/05/2017 . Findings: The mediastinum and cardiac silhouette are stable and within normal limits for portable technique. The lung mandel are clear without acute consolidation, effusion, or pneumothorax. Skeletal structures are intact. Impression: No acute cardiopulmonary process appreciated. Clinical: Status post open reduction and fixation. Technique: AP and lateral views of the right tibia / fibula. Findings: The patient is status post satisfactory open reduction and fixation with intramedullary joelle through the tibial shaft. Transverse fracture through the distal tibial diaphysis demonstrates normal alignment. Nondisplaced fracture of the distal fibular shaft noted. Impression: Status post satisfactory open reduction and fixation. CT Angiography Chest With Contrast EXAM DATE/TIME: 12/24/2018 5:24 PM CLINICAL HISTORY: 23 years old, male; Chest pain; Additional info: Incomplete scan 12/23/18 TECHNIQUE: Imaging protocol: Axial computed tomographic angiography images of the chest with intravenous contrast using CT angiography protocol. Coronal and sagittal reformatted images were created and reviewed. 3D rendering: MIP reconstructed images were created and reviewed. Radiation optimization: All CT scans at this facility use at least one of these dose optimization techniques: automated exposure control; mA and/or kV adjustment per patient size (includes targeted exams where dose is matched to clinical indication); or iterative reconstruction. Contrast material: ISOVUE 370;Contrast volume: 75 ml;Contrast route: IV; COMPARISON: CT ANGIO CHEST 12/23/2018 4:58 PM FINDINGS: Pulmonary arteries: Small partially occlusive filling defect in 2 upper lobe segmental pulmonary arteries on the right. Remaining pulmonary arteries unremarkable. Aorta: Unremarkable. No aortic aneurysm. No aortic dissection. Lungs: Bibasilar atelectasis. Lungs otherwise clear. Pleural space: Unremarkable. No pneumothorax. No pleural effusion. Heart: Unremarkable. No cardiomegaly. No pericardial effusion. Lymph nodes: Unremarkable. No enlarged lymph nodes. Bones/joints: Unremarkable. No acute fracture. Soft tissues: Unremarkable. IMPRESSION: 1. Small partially occlusive filling defect in 2 upper lobe segmental pulmonary arteries on the right. 2. No aneurysm or dissection. PROGNOSIS: Fair ACTIVITY: As recommended by orthopedic surgery DIET: Regular diet DISCHARGE PLAN: DISPOSITION: Home, Self-Care. DISCHARGE INSTRUCTIONS: Follow with primary care physician within 7 days. Follow-up with orthopedic surgery as scheduled. Return to the ER for any acute emergency. DISCHARGE CONDITION: Stable. TIME SPENT ON DISCHARGE: Greater than 30 minutes. Vital Signs/I&Os Vital Signs Date Time Temp Pulse Resp B/P (MAP) Pulse Ox O2 Delivery O2 Flow Rate FiO2 12/26/18 13:58 18 12/26/18 12:00 96.4 95 145/81 (102) 98 12/21/18 00:20 Room Air I&O- Last 24 Hours up to 6 AM 12/26/18 06:00 Intake Total 640 ml Output Total 1300 ml Balance -660 ml Microbiology Microbiology 12/23/18 Blood Culture - Preliminary, Resulted No Growth after 72 hours. All specime... 12/23/18 Blood Culture - Preliminary, Resulted No Growth after 72 hours. All specime... Discharge Medications Scheduled Apixaban (Eliquis) 5 Mg Tablet, 5 MG PO ASDIRECTED for pulmonary embolism 10mg BID for 1 week, then 5mg BID for next 3-6 months. Further refills thru your PCP office Cyclobenzaprine HCl (Cyclobenzaprine HCl) 5 Mg Tablet, 5 MG PO Q8H Nystatin (Nystatin Oral Susp) 100,000 Unit/1 Ml Oral.susp, 5 ML PO QID Scheduled PRN Oxycodone HCl (Oxycodone HCl) 5 Mg Tablet, 10 MG PO Q4HP PRN for MODERATE PAIN (PS 5-7) Allergies Coded Allergies: No Known Allergies (Unverified , 06/07/17) KASHIF STONER MD Dec 26, 2018 17:04
[2018-12-27] MEDS ORDERED: NYST50SS PO (17:10)
== END 2018-12-26 16:25 | disposition home or self-care (01) | DRG 494 ==
LOC: M ED 20:09 → M ED INP 22:40 → M MS5PR 12-21 01:05 → M PCU 12-24 18:50
PROVIDERS: ADMIT Orthopaedic Surgery Hand Surgery; ATTEND Internal Medicine
PROC: 0QSJ04Z Reposition Right Fibula with Internal Fixation Device, Open Approach (ICD-10-PCS; 2018-12-21)
PROC: 0QSG04Z Reposition Right Tibia with Internal Fixation Device, Open Approach (ICD-10-PCS; principal; 2018-12-21 20:00)
DX: S82.201B Unspecified fracture of shaft of right tibia, initial encounter for open fracture type I or II (principal); W50.1XXA Accidental kick by another person, initial encounter; Y92.39 Other specified sports and athletic area as the place of occurrence of the external cause; S82.401A Unspecified fracture of shaft of right fibula, initial encounter for closed fracture; F17.200 Nicotine dependence, unspecified, uncomplicated

== ENCOUNTER 2018-12-27 21:41 | Emergency (ER) | payer OTHER ==
[~2018-12-27] VITALS: Ht 182.9 cm; Wt 72.7 kg
[~2018-12-27 21:41] MED LIST changes: +CYCL5TAB PO; +ELIQ5TAB PO; +NYST50SS PO; +OXYCO5TA PO
[2018-12-27 22:14] LABS: BASO % 0.5 % (0.0-1.0); EOS # 0.1 10^3/uL (0.0-0.50); EOS % 1.9 % (0.0-3.0); HEMATOCRIT 39.5 % (42.0-52.0); HEMOGLOBIN 13.3 g/dl (13.5-17.5); LYMPH # 1.6 10^3/uL (1.5-6.5); LYMPH % 25.4 % (24.0-44.0); MEAN CORPUSCULAR HEMOGLOBIN 29.6 pg (27.0-33.0); MEAN CORPUSCULAR HGB CONC 33.7 g/dl (32.0-36.5); MONO % 15.5 % (0.0-5.0); NEUTROPHILS # 3.5 10^3/uL (1.8-7.7); NEUTROPHILS % 55.3 % (36.0-66.0); PLATELET COUNT, AUTOMATED 382 10^3/uL (150-450); RED BLOOD COUNT 4.49 10^6/uL (4.30-6.10); WHITE BLOOD COUNT 6.3 10^3/uL (4.0-10.0)
[2018-12-27 22:23] LABS: INR 1.36; PROTHROMBIN TIME 16.5 SECONDS (11.8-14.0)
[2018-12-27 22:24] LABS: PARTIAL THROMBOPLASTIN TIME 36.5 SECONDS (25.0-38.4)
[2018-12-27 22:26] LABS: D-DIMER QUANT 2917.07 ng/ml (<500)
[2018-12-27] MEDS ORDERED: NS 1,000 ML IV ONE (22:30)
[2018-12-27 22:46] LABS: BLOOD UREA NITROGEN 15 MG/DL (7-18); CALCIUM LEVEL 9.3 MG/DL (8.5-10.1); CARBON DIOXIDE LEVEL 31 MEQ/L (21-32); CHLORIDE LEVEL 98 MEQ/L (98-107); CK-MB VALUE MASS < 1.0 NG/ML (<3.6); CPK CREATINE PHOSPHOKINASE 321 U/L (39-308); CREATININE FOR GFR 1.03 MG/DL (0.70-1.30); GLOMERULAR FILTRATION RATE > 60.0 (>60); GLUCOSE, FASTING 106 MG/DL (70-100); MB/CK RELATIVE INDEX 0.31 (< OR =4); POTASSIUM SERUM 4.3 MEQ/L (3.5-5.1); SODIUM LEVEL 134 MEQ/L (136-145); TROPONIN I < 0.02 NG/ML (< 0.10)
[2018-12-27] MEDS ORDERED: ISOVUE-370 76% 100ML VIAL (Q9967) As Ordered ONE (22:48)
--- NOTE | 2018-12-27 23:44 | REPVR ---
EXAM: CT Angiography Chest With Contrast EXAM DATE/TIME: 12/27/2018 10:58 PM CLINICAL HISTORY: 23 years old, male; Shortness of breath; Patient HX: PT with recent surgery on leg < 2weeks; Additional info: SOB TECHNIQUE: Imaging protocol: Axial computed tomographic angiography images of the chest with intravenous contrast using CT angiography protocol. Coronal and sagittal reformatted images were created and reviewed. 3D rendering: MIP reconstructed images were created and reviewed. Radiation optimization: All CT scans at this facility use at least one of these dose optimization techniques: automated exposure control; mA and/or kV adjustment per patient size (includes targeted exams where dose is matched to clinical indication); or iterative reconstruction. Contrast material: ISO;Contrast volume: 75 ml;Contrast route: AC; COMPARISON: CT ANGIO CHEST 12/24/2018 5:30 PM FINDINGS: Pulmonary arteries: Contrast opacification satisfactory. No intraluminal filling defect. Aorta: Unremarkable. No aneurysm or dissection. Lungs: Unremarkable. No consolidation. No mass. Pleural space: Unremarkable. No pneumothorax. No pleural effusion. Heart: Unremarkable. No cardiomegaly. No pericardial effusion. Lymph nodes: No pathologically enlarged lymph nodes. Bones/joints: No acute osseous abnormality. Soft tissues: Mild bilateral gynecomastia. IMPRESSION: 1. No CT evidence of pulmonary embolism. 2. Additional findings, as above. Electronically signed by: Arnaldo Eisenberg On 12/27/2018 23:44:25 PM
[2018-12-28] MEDS ORDERED: MORPHINE 10 MG/ML 1ML VIAL (J2270) IV ONE
[2018-12-28 00:15] VITALS: BP 124/72
--- NOTE | 2018-12-29 07:58 | ECGEPIP ---
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
== END 2018-12-28 00:46 | disposition home or self-care (01) ==
LOC: M ED 21:41
DX: M79.604 Pain in right leg (principal); R00.2 Palpitations; Z98.890 Other specified postprocedural states; R00.0 Tachycardia, unspecified; I10 Essential (primary) hypertension; Z86.711 Personal history of pulmonary embolism; F17.200 Nicotine dependence, unspecified, uncomplicated; Z79.899 Other long term (current) drug therapy; Z79.01 Long term (current) use of anticoagulants; Z79.891 Long term (current) use of opiate analgesic
CPT/HCPCS: 71275; 80048; 82550; 82553; 84484; 85025; 85379; 85610; 85730; 93005; 93041; 94760; 96361; 96374; 99285; J2270; Q9967

== ENCOUNTER 2019-04-24 16:14 | Emergency (ER) | payer OTHER ==
[~2019-04-24] VITALS: Ht 180.3 cm; Wt 72.7 kg
[2019-04-24 16:50] LABS: BASO % 0.4 % (0.0-1.0); EOS # 0.1 10^3/uL (0.0-0.5); EOS % 1.1 % (0.0-3.0); HEMATOCRIT 47.8 % (42.0-52.0); HEMOGLOBIN 15.8 g/dl (13.5-17.5); LYMPH # 1.8 10^3/uL (1.5-5.0); MEAN CORPUSCULAR HEMOGLOBIN 29.1 pg (27.0-33.0); MEAN CORPUSCULAR HGB CONC 33.1 g/dl (32.0-36.5); MONO # 0.3 10^3/uL (0.0-0.8); MONO % 5.9 % (0.0-5.0); NEUTROPHILS # 3.3 10^3/uL (1.5-8.5); NEUTROPHILS % 59.2 % (36.0-66.0); PLATELET COUNT, AUTOMATED 266 10^3/uL (150-450); RED BLOOD COUNT 5.43 10^6/uL (4.30-6.10); WHITE BLOOD COUNT 5.6 10^3/uL (4.0-10.0)
--- NOTE | 2019-04-24 17:08 | REP ---
Clinical: Chest pain . Comparison: 12/20/2018 . Technique: PA and lateral. Findings: The mediastinum and cardiac silhouette are normal. The lung mandel are clear and without acute consolidation, effusion, or pneumothorax. The skeletal structures are intact and normal. Impression: 1. No acute cardiopulmonary process. Electronically Signed by Asa Lincoln MD 04/24/2019 05:00 P
[2019-04-24 17:21] LABS: BLOOD UREA NITROGEN 13 MG/DL (7-18); CALCIUM LEVEL 9.8 MG/DL (8.5-10.1); CARBON DIOXIDE LEVEL 31 MEQ/L (21-32); CHLORIDE LEVEL 104 MEQ/L (98-107); CK-MB VALUE MASS 1.1 NG/ML (<3.6); CPK CREATINE PHOSPHOKINASE 209 U/L (39-308); CREATININE FOR GFR 1.16 MG/DL (0.70-1.30); GLOMERULAR FILTRATION RATE > 60.0 (>60); GLUCOSE, FASTING 103 MG/DL (70-100); MB/CK RELATIVE INDEX 0.53 (< OR =4); POTASSIUM SERUM 3.7 MEQ/L (3.5-5.1); SODIUM LEVEL 141 MEQ/L (136-145); TROPONIN I < 0.02 NG/ML (< 0.10)
[2019-04-24 17:23] LABS: INR 1.05; PARTIAL THROMBOPLASTIN TIME 29.6 SECONDS (25.0-38.4); PROTHROMBIN TIME 13.4 SECONDS (11.8-14.0)
[2019-04-24 17:30] LABS: ERYTHROCYTE SEDIMENTATION RATE 2 mm/hr (0-15)
[2019-04-24] MEDS ORDERED: ISOVUE-370 76% 100ML VIAL (Q9967) As Ordered ONE (17:46)
--- NOTE | 2019-04-24 18:30 | REPVR ---
PROCEDURE INFORMATION: Exam: CT Angiography Chest With Contrast Exam date and time: 04/24/2019 5:57 PM Age: 24 years old Clinical history: Chest pain; Type not specified; Additional info: H/o pe - pleuritic cp TECHNIQUE: Imaging protocol: Computed tomographic angiography of the chest with intravenous contrast. 3D rendering: MIP reconstructed images were created and reviewed. Radiation optimization: All CT scans at this facility use at least one of these dose optimization techniques: automated exposure control; mA and/or kV adjustment per patient size (includes targeted exams where dose is matched to clinical indication); or iterative reconstruction. Contrast material: ISOVUE 370; Contrast volume: 75 ml; Contrast route: IV; COMPARISON: CT ANGIO CHEST 12/27/2018 10:55 PM FINDINGS: Pulmonary arteries: Normal. No pulmonary emboli. Aorta: Unremarkable. No aortic aneurysm. No aortic dissection. Lungs: Unremarkable. No consolidation. No masses. Pleural space: Unremarkable. No pneumothorax. No pleural effusion. Heart: Unremarkable. No cardiomegaly. No pericardial effusion. Lymph nodes: Unremarkable. No enlarged lymph nodes. Bones/joints: Unremarkable. No acute fracture. Soft tissues: Unremarkable. IMPRESSION: No acute abnormality. Electronically signed by: Emil Penny On 04/24/2019 18:30:43 PM
[2019-04-24 18:45] VITALS: BP 131/73
--- NOTE | 2019-04-25 17:57 | ECGEPIP ---
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
== END 2019-04-24 18:59 | disposition home or self-care (01) ==
LOC: M ED 16:14
DX: R07.81 Pleurodynia (principal); I45.19 Other right bundle-branch block; Z79.01 Long term (current) use of anticoagulants; Z79.84 Long term (current) use of oral hypoglycemic drugs; Z79.899 Other long term (current) drug therapy; Z79.891 Long term (current) use of opiate analgesic
CPT/HCPCS: 36415; 71045; 71275; 80048; 82550; 82553; 84484; 85025; 85610; 85652; 85730; 93005; 93041; 94760; 99285; Q9967

== ENCOUNTER 2019-10-30 09:24 | Day surgery (SDC) | payer OTHER ==
[~2019-10-30] VITALS: Ht 180.3 cm; Wt 77.5 kg
[~2019-10-30 09:24] MED LIST changes: +CYCL-707; +CYCL-707 PO; -CYCL10TA; -CYCL10TA PO; +GNP250TA9 PO; +NS 1,000 ML IV ONE; +OMEP40CA97 PO; +VITAD1000T PO
--- NOTE | 2019-10-30 10:24 | ROOR ---
Patient Name: Shemar Snowden Procedure Date: 10/30/2019 10:07 AM Date of : 1995 Age: 24 Room: [facility] ED Gender: Male Note Status: Finalized Procedure: Upper Endoscopy + Biopsies Indications: Epigastric abdominal pain, Heartburn Providers: Esa Whitehead MD Referring MD: MEENAKSHI DASH MD Requesting Provider: Medicines: Monitored Anesthesia Care Complications: No immediate complications. Procedure: Pre-Anesthesia Assessment: - The heart rate, respiratory rate, oxygen saturations, blood pressure, adequacy of pulmonary ventilation, and response to care were monitored throughout the procedure. The Endoscope was introduced through the mouth, and advanced to the second part of duodenum. The upper GI endoscopy was accomplished without difficulty. The patient tolerated the procedure well. Findings: The Z-line was regular and was found 40 cm from the incisors. No other significant abnormalities were identified in a careful examination of the stomach. Biopsies were taken with a cold forceps in the gastric antrum for Helicobacter pylori testing. Three non-bleeding cratered duodenal ulcers with no stigmata of bleeding were found in the duodenal bulb. The exam of the duodenum was otherwise normal. Impression: - Z-line regular, 40 cm from the incisors. - Non-bleeding duodenal ulcers with no stigmata of bleeding. - Biopsies were taken with a cold forceps for Helicobacter pylori testing. - The examination was otherwise normal. Recommendation: - Patient has a contact number available for emergencies. The signs and symptoms of potential delayed complications were discussed with the patient. Return to normal activities tomorrow. Written discharge instructions were provided to the patient. - High fiber diet. - Discharge patient to home. - Follow an antireflux regimen. - Use Prilosec (omeprazole) 40 mg PO BID for 6 weeks. - Await pathology results. - Telephone GI clinic for pathology results in 1 week. - Return to referring physician. - The findings and recommendations were discussed with the patient's family. Esa Whitehead MD Esa Whitehead MD 10/30/2019 10:24:01 AM Electronically signed by Esa Whitehead MD Number of Addenda: 0 Note Initiated On: 10/30/2019 10:07 AM Estimated Blood Loss: Estimated blood loss: none.
[2019-10-30] MEDS ORDERED: propofoL 200 MG/20 ML VIAL As Ordered ONE (10:33)
[2019-10-30 11:00] VITALS: BP 128/84
== END 2019-10-30 11:24 | disposition home or self-care (01) ==
LOC: M OPP 09:24
PROVIDERS: ATTEND Internal Medicine Gastroenterology
DX: K26.9 Duodenal ulcer, unspecified as acute or chronic, without hemorrhage or perforation (principal); R10.13 Epigastric pain; R12 Heartburn; G47.30 Sleep apnea, unspecified; F17.210 Nicotine dependence, cigarettes, uncomplicated

== ENCOUNTER 2020-03-12 15:25 | Emergency (ER) | payer OTHER ==
[~2020-03-12] VITALS: Ht 180.3 cm; Wt 82.1 kg
[~2020-03-12 15:25] MED LIST changes: +D31000TA2 PO; -NS 1,000 ML IV ONE; -VITAD1000T PO
[2020-03-12] MEDS ORDERED: NS 1,000 ML IV ONE (16:15)
[2020-03-12 16:39] LABS: BASO % 0.4 % (0.0-1.0); EOS # 0.3 10^3/uL (0.0-0.5); EOS % 4.6 % (0.0-3.0); HEMATOCRIT 44.4 % (42.0-52.0); LYMPH # 2.3 10^3/uL (1.5-5.0); LYMPH % 41.1 % (24.0-44.0); MEAN CORPUSCULAR HEMOGLOBIN 30.2 pg (27.0-33.0); MEAN CORPUSCULAR HGB CONC 33.8 g/dl (32.0-36.5); MEAN CORPUSCULAR VOLUME 89.3 fl (80.0-96.0); MONO # 0.5 10^3/uL (0.0-0.8); MONO % 8.1 % (0.0-5.0); NEUTROPHILS # 2.6 10^3/uL (1.5-8.5); NEUTROPHILS % 45.6 % (36.0-66.0); PLATELET COUNT, AUTOMATED 253 10^3/uL (150-450); RED BLOOD COUNT 4.97 10^6/uL (4.30-6.10); WHITE BLOOD COUNT 5.7 10^3/uL (4.0-10.0)
--- NOTE | 2020-03-12 16:49 | REPVR ---
PROCEDURE INFORMATION: Exam: XR Chest, 2 Views Exam date and time: 03/12/2020 4:05 PM Age: 25 years old Clinical indication: Chest pain TECHNIQUE: Imaging protocol: XR of the chest Views: 2 views. COMPARISON: CR PORTABLE CHEST X-RAY 04/24/2019 4:41 PM FINDINGS: Lungs: No acute cardiopulmonary disease evident. Both lungs are well-aerated. Pleural space: Unremarkable. No pleural effusion. No pneumothorax. Heart/Mediastinum: Unremarkable. No cardiomegaly. Bones/joints: Unremarkable. Other findings: Comparison to the previous chest radiograph from 04/24/2019 shows no interval change. IMPRESSION: 1. No acute cardiopulmonary disease evident. Both lungs are well-aerated. 2. Comparison to the previous chest radiograph from 04/24/2019 shows no interval change. Electronically signed by: Jaime Long On 03/12/2020 16:49:38 PM
[2020-03-12 16:50] LABS: INR 0.79; PROTHROMBIN TIME 11.1 SECONDS (12.5-14.3)
[2020-03-12 16:51] LABS: PARTIAL THROMBOPLASTIN TIME 26.8 SECONDS (24.2-38.5)
[2020-03-12 16:54] LABS: D-DIMER QUANT < 270 ng/ml (<500)
[2020-03-12] MEDS ORDERED: OMEP40CA97 PO (17:12)
[2020-03-12 17:14] LABS: ALBUMIN 4.2 GM/DL (3.2-5.2); ALT/SGPT 55 U/L (12-78); BILIRUBIN,DIRECT < 0.1 MG/DL (0.0-0.2); BILIRUBIN,TOTAL 0.4 MG/DL (0.2-1.0); BLOOD UREA NITROGEN 11 MG/DL (7-18); CALCIUM LEVEL 9.7 MG/DL (8.5-10.1); CARBON DIOXIDE LEVEL 31 MEQ/L (21-32); CHLORIDE LEVEL 105 MEQ/L (98-107); CK-MB VALUE MASS 1.1 NG/ML (<3.6); CPK CREATINE PHOSPHOKINASE 178 U/L (39-308); CREATININE FOR GFR 1.07 MG/DL (0.70-1.30); FREE T4 0.88 NG/DL (0.76-1.46); GLOMERULAR FILTRATION RATE > 60.0 (>60); GLUCOSE, FASTING 90 MG/DL (70-100); LIPASE 129 U/L (73-393); MB/CK RELATIVE INDEX 0.62 (< OR =4); NT-PRO BNP < 5 PG/ML (<125); POTASSIUM SERUM 4.1 MEQ/L (3.5-5.1); SODIUM LEVEL 140 MEQ/L (136-145); TOTAL PROTEIN 7.5 GM/DL (6.4-8.2); TROPONIN I < 0.02 NG/ML (< 0.10)
[2020-03-12 17:27] VITALS: BP 116/73
--- NOTE | 2020-03-13 20:22 | ECGEPIP ---
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
== END 2020-03-12 17:30 | disposition home or self-care (01) ==
LOC: M ED 15:25
DX: R07.9 Chest pain, unspecified (principal); Z86.711 Personal history of pulmonary embolism; F17.200 Nicotine dependence, unspecified, uncomplicated; Z79.899 Other long term (current) drug therapy